=== PATIENT | male | born 2005 | race Caucasian/White ===

== ENCOUNTER 2025-04-07 23:10 | Emergency (ER) | payer BC ==
[~2025-04-07] VITALS: Ht 177.8 cm; Wt 63.0 kg
[2025-04-07 23:15] VITALS: O2SAT 97
[2025-04-07 23:16] VITALS: BP 107/61; PULSE 106; RESP 18; TEMP 36.8; O2SAT 100
[2025-04-08] MEDS: LIDOCAINE HCL 1% 20ML VIAL INFIL ONE (01:28)
[2025-04-08] MEDS: BACITRACIN ZINC OINT UDPKT TOP ONE (01:28)
[2025-04-08] MEDS: TETANUS, DIPHTHERIA, PERTUSSIS VAC/PF 0.5ML (>10YR OLD) IM ONE (01:29)
[2025-04-08] MEDS: IBUPROFEN 600MG TABLET PO ONE (01:30)
[2025-04-08] MEDS ORDERED: BO1 TP (01:49)
[2025-04-08] MEDS ORDERED: IBUP-1455 MT (01:49)
== END 2025-04-08 02:19 | disposition home or self-care (01) ==
LOC: ER 23:10
DX: S01.81XA Laceration without foreign body of other part of head, initial encounter (principal); X58.XXXA Exposure to other specified factors, initial encounter; Y93.89 Activity, other specified; Y92.89 Other specified places as the place of occurrence of the external cause; Y99.8 Other external cause status
CPT/HCPCS: 99283; 12011; 90715; 90471; J2003